=== PATIENT | male | born 1940 | race Hispanic/Latino ===

== ENCOUNTER 2021-06-24 10:07 | Outpatient (CLI) | payer MEDICARE ==
[2021-06-24 22:01] LABS: SARS-CoV-2 PCR by NAA Not Detected (NotDetected)
== END 2021-06-24 10:08 | disposition home or self-care (01) ==
LOC: LABBT 10:07
PROVIDERS: ATTEND Internal Medicine Gastroenterology
DX: Z01.812 Encounter for preprocedural laboratory examination (principal); R13.10 Dysphagia, unspecified; K21.9 Gastro-esophageal reflux disease without esophagitis; Z20.822 Contact with and (suspected) exposure to COVID-19
CPT/HCPCS: U0003; U0005

== ENCOUNTER 2021-06-27 06:20 | Day surgery (SDC) | payer MEDICARE ==
[2021-06-25 13:59] VITALS: BMI 34.7
[2021-06-27] MEDS ORDERED: Fentanyl 100 MCG/2 ML VIAL ONE (07:42)
[2021-06-27] MEDS ORDERED: PROPOFOL 200 MG/20 ML VIAL ONE (08:41)
== END 2021-06-27 09:35 | disposition home or self-care (01) ==
LOC: SDC 06:20
PROVIDERS: ATTEND Internal Medicine Gastroenterology
PROC: 0D748ZZ Dilation of Esophagogastric Junction, Via Natural or Artificial Opening Endoscopic (ICD-10-PCS; principal; 2021-06-27)
DX: K22.89 Other specified disease of esophagus (principal); R13.10 Dysphagia, unspecified; K21.9 Gastro-esophageal reflux disease without esophagitis; K57.10 Diverticulosis of small intestine without perforation or abscess without bleeding; I10 Essential (primary) hypertension; M19.90 Unspecified osteoarthritis, unspecified site; Z79.899 Other long term (current) drug therapy; Z95.810 Presence of automatic (implantable) cardiac defibrillator
CPT/HCPCS: J2704; J3010